=== PATIENT | female | born 1960 ===

== ENCOUNTER 2023-07-08 09:26 | Day surgery (SDC) | payer OTHER ==
[~2023-07-08] VITALS: Ht 147.3 cm; Wt 63.5 kg
[~2023-07-08 09:26] MED LIST: ZESTRIL20 MG PO
== END 2023-07-08 19:45 | disposition home or self-care (01) ==
LOC: CIR.AMB 09:26
PROVIDERS: ATTEND Colon & Rectal Surgery
DX: K62.0 Anal polyp (principal); K62.1 Rectal polyp; L29.0 Pruritus ani; K64.2 Third degree hemorrhoids; Z20.822 Contact with and (suspected) exposure to COVID-19; I10 Essential (primary) hypertension; F32.A Depression, unspecified